=== PATIENT | male | born 1980 | race Caucasian/White ===

== ENCOUNTER 2019-12-17 06:21 | Day surgery (SDC) | payer BC ==
[2019-12-14 15:28] VITALS: BMI 34.7
[~2019-12-17 06:21] MED LIST: ACETAMINOPHEN TAB 500 MG TAB PO ONE; DEXAMETHASONE SOD PHOSPHATE 10 MG/ML 1 ML VIAL IV ONE; HEPARIN SODIUM,PORCINE 5,000 UNIT/ML 1 ML VIAL SQ ONE; HYDROmorphone 0.5 MG/0.5 ML SYRINGE IVP PRN; LACTATED RINGERS 1,000 ML IV SCH; ONDANSETRON 4 MG/2 ML VIAL IVP ONE; Pre Op ABX Message 1 EACH MISC MISCELLANE ONE
[2019-12-17 06:56] VITALS: TEMP 96.9
[2019-12-17] MEDS ORDERED: fentaNYL (PF) 50 MCG/ML 2 ML AMP ONE (07:46)
[2019-12-17] MEDS ORDERED: PROPOFOL 10 MG/ML 20 ML VIAL IV ONE (07:46)
[2019-12-17] MEDS ORDERED: LIDOCAINE 1% INJ 10MG/ML (20 ML MDV) ONE (07:46)
[2019-12-17] MEDS ORDERED: MIDAZOLAM 2 MG/2 ML VIAL ONE (07:46)
[2019-12-17] MEDS ORDERED: LIDOCAINE 1%-EPI 1:100,000 20 ML VIAL SQ ONE ×2 (08:05)
[2019-12-17 08:26] VITALS: RESP 16
--- NOTE | 2019-12-17 08:26 | P.GSHP ---
History of Present Illness H&P Date: 12/17/19 Chief Complaint: Fibrous histiocytoma left neck This a 31-year-old male who underwent recent biopsy of a left neck skin lesion. 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 He presents today for excision. Past Medical History Past Medical History: No Reported History Additional Past Medical History / Comment(s): Hx Cellulitis on forehead. History of Any Multi-Drug Resistant Organisms: None Reported Past Surgical History: Orthopedic Surgery Additional Past Surgical History / Comment(s): Excision of skin lesion on neck. Left femur surgery with laureano and screws placed and later removed. Past Anesthesia/Blood Transfusion Reactions: No Reported Reaction Past Psychological History: No Psychological Hx Reported Smoking Status: Former smoker Past Alcohol Use History: Occasional Additional Past Alcohol Use History / Comment(s): Quit smoking in 2007, relapsed and quit again in 2015. Past Drug Use History: None Reported - Past Family History Mother Family Medical History: No Reported History Medications and Allergies Home Medications Medication Instructions Recorded Confirmed Type No Known Home Medications 11/26/19 12/14/19 History Allergies Allergy/AdvReac Type Severity Reaction Status Date / Time No Known Allergies Allergy Verified 12/14/19 15:17 Surgical - Exam Vital Signs Temp Pulse Resp BP Pulse Ox 96.9 F L 54 L 18 116/76 97 12/17/19 06:45 12/17/19 06:45 12/17/19 06:45 12/17/19 06:45 12/17/19 06:45 - General well developed, well nourished, no distress - Eyes PERRL - ENT normal pinna - Neck no masses, no bruits - Respiratory normal expansion - Cardiovascular Rhythm: regular - Abdomen Abdomen: soft, non tender - Integumentary 2 cm fibrocystic cytoma left neck Assessment and Plan Assessment: Left neck fibrocystic cytoma. We'll perform excision.
--- NOTE | 2019-12-17 08:28 | P.OP ---
Date of Procedure: 12/17/19 Preoperative Diagnosis: Fibrocystic cytoma left neck Postoperative Diagnosis: Fibrous histiocytoma left neck Procedure(s) Performed: Wide local excision of fibrocystic cytoma left neck Anesthesia: MAC Surgeon: Dixon Garland Estimated Blood Loss (ml): 3 Pathology: other (Left neck fibrous histiocytoma) Condition: stable Disposition: PACU Description of Procedure: Patient's placed on the operative table in the supine position. He received IV sedation. His left neck was prepped and draped usual sterile fashion. The skin was reapproximated to 7 is in diameter. An elliptical skin incision was made around the neck after the skin was anesthetized 1% local Xylocaine. Cautery was used for hemostasis. The skin was then closed with 3-0 Monocryl. Patient top she will was sent to recovery room stable condition.
[2019-12-17 08:50] VITALS: BP 116/61; PULSE 55
== END 2019-12-17 09:16 | disposition home or self-care (01) ==
LOC: OR 06:21
PROVIDERS: ATTEND Surgery
DX: D23.4 Other benign neoplasm of skin of scalp and neck (principal); E66.9 Obesity, unspecified; Z87.891 Personal history of nicotine dependence; Z98.890 Other specified postprocedural states; Z68.35 Body mass index [BMI] 35.0-35.9, adult
CPT/HCPCS: 11422; 88305; J2250; J1644; J1100; J2405; J2001; J3010; J2704